=== PATIENT | male | born 1955 | race Caucasian/White ===

== ENCOUNTER 2023-11-21 19:32 | Emergency (ER) | payer MEDICARE, OTHER, SELFPAY ==
[2023-11-21 19:39] VITALS: BP 146/101; PULSE 76; TEMP 36.9; O2SAT 99; BMI 18.5
--- NOTE | 2023-11-21 20:47 | XR_ITS ---
The [address] [address] Patient Name: MARSHA HYDE MRN: [id number] date: 1955 Sex: M Assigned Patient Location: ER Current Patient Location: ER Accession/Order Number: [id number] Exam Date: 11/21/2023 21:45 Report Date: 11/21/2023 22:37 At the request of: TOMASZ MARKER Procedure: XR chest 2V CXR HISTORY: Shortness of breath. COMPARISON: None. TECHNIQUE: 2 views submitted for review. FINDINGS: The lungs are adequately expanded.. Platelike atelectasis There is prominence of interstitial and bronchial markings. The cardiac silhouette measures within normal. Pulmonary vascularity is prominent. Osseous structures demonstrate incompletely imaged right humeral arthroplasty XR/XR chest 2V IMPRESSION: There is prominence of interstitial and bronchial markings. Please correlate for viral etiologies vs pulmonary edema. Electronically authenticated by: KERRY PUTNAM Date: 11/21/2023 22:37
--- NOTE | 2023-11-21 20:47 | XR_ITS ---
[address] [address] Patient Name: MARSHA HYDE MRN: [id number] date: 1955 Sex: M Assigned Patient Location: ER Current Patient Location: Accession/Order Number: [id number] Exam Date: 11/21/2023 21:45 Report Date: 11/21/2023 22:29 At the request of: TOMASZ MARKER Procedure: XR soft tissue neck XR soft tissue neck, 11/21/2023 8:45 PM CDT: History: diff swallowing. Difficulty swallowing. Comparison: None. Technique: 2 view soft tissue neck Findings/Impression: The soft tissues of the neck demonstrate no acute abnormality. There is severe degenerative disc disease of the cervical spine. The airway is midline and patent. Electronically authenticated by: KATHRYN PAREDES Date: 11/21/2023 22:29
--- NOTE | 2023-11-21 23:22 | ED.GENADUL1 ---
HPI HPI - General Adult General Chief complaint: Shortness of Breath/Dyspnea Stated complaint: ALS PT-POSS THROAT CLOSING PER DOC Time Seen by Provider: 11/21/23 19:50 Source: patient Mode of arrival: walk-in History of Present Illness HPI narrative: This 68-year-old male who was diagnosed with ALS 2 years ago and is being followed at [facility] presents for evaluation at the request of his physician. The patient has been having episodes of choking when he drinks water and has been having trouble swallowing his saliva and secretions. He is not having any difficulty breathing. He is not having any difficulty speaking. The physician stated to the patient's that since he was unable to evaluate the patient personally he would like to have him seen in the emergency department for an airway evaluation. The patient is speaking in complete sentences. His voice is a little bit weak but clear. He is managing his secretions without difficulty. He states that when he drinks water he sometimes has difficulty swallowing it and chokes on it but when he eats soft food he tolerates it better. He is scheduled to see interventional radiology and get a feeding tube placed in the next several days. Related Data Allergies Allergy/AdvReac Type Severity Reaction Status Date / Time No Known Drug Allergies Allergy Verified 11/21/23 19:51 Opioid HPI Opioid Management Most Recent Opioid Data: No Data to Display Review of Systems ROS Status of ROS 10 or more systems reviewed and unremarkable except as noted in history and below [facility] Medical History (Updated 11/21/23 @ 22:03 by Tomasz Casillas MD) ALS (amyotrophic lateral sclerosis) ?G12.21 - Amyotrophic lateral sclerosis (ICD-10) Exam Narrative Exam Narrative: Vital signs and Nursing Notes reviewed: Blood pressure is elevated at 146/101 General: Awake, alert, oriented, no acute distress, lying comfortably on the stretcher HEENT: Normocephalic atraumatic, mucous membranes are moist and pink, eyes are clear, normal conjunctiva, vision is grossly intact, posterior pharynx is normal in appearance. There is no swelling of the tongue, uvular pharyngeal soft tissues. There is no pooling of secretions. There is no trismus or drooling. Neck: Supple, no meningeal signs, no anterior or posterior cervical lymphadenopathy Chest: Lungs are clear to auscultation with good air entry, there is no wheezing rhonchi or rales appreciated no accessory muscle use, patient is speaking in complete sentences-no chest wall tenderness to palpation CVS: Regular rate and rhythm S1-S2, no murmurs rubs or gallops, pulses are brisk and equal bilaterally ABD: Soft, nondistended, nontender, no rebound guarding or rigidity, bowel sounds are normal, no pulsatile masses appreciated Extremities: Moving all extremities, diffuse muscle wasting noted Skin: Normal in appearance without rash,pallor, petechiae or purpura Neuro: No focal deficits, speech is clear, generally weak but tolerating secretions, speaking in complete sentences without any respiratory distress, choking or other notable abnormality Constitutional Vital Signs, click to edit/add: Last Vital Signs Temp 98.4 F 11/21/23 19:39 Pulse 76 11/21/23 19:39 Resp 18 11/21/23 19:39 BP 146/101 H 11/21/23 19:39 Pulse Ox 99 11/21/23 19:39 O2 Del Method Room Air 11/21/23 19:39 Course Vital Signs Vital signs: Vital Signs Temperature 98.4 F 11/21/23 19:39 Pulse Rate 76 11/21/23 19:39 Respiratory Rate 18 11/21/23 19:39 Blood Pressure 146/101 H 11/21/23 19:39 Pulse Oximetry 99 11/21/23 19:39 Oxygen Delivery Method Room Air 11/21/23 19:39 Temperature 98.4 F 11/21/23 19:39 Pulse Rate 76 11/21/23 19:39 Respiratory Rate 18 11/21/23 19:39 Blood Pressure 146/101 H 11/21/23 19:39 Pulse Oximetry 99 11/21/23 19:39 Oxygen Delivery Method Room Air 11/21/23 19:39 Medical Decision Making MDM Narrative Medical decision making narrative: This 68-year-old male with a history of ALS who is scheduled to have a feeding tube placed in the near future was referred to the emergency department by his neurologist at [facility] for evaluation of his airway. The patient has been having some difficulty tolerating his secretions and when he drinks liquids he tends to choke. He does tolerate a soft diet better and does not choke when he is swallowing food such as mashed potatoes and creamed tuna. The patient's states that his disease has been advancing fairly quickly over the course of the past several months causing them to have increasing anxiety. There appears to be some concern from the neurologist that he was having airway compromise. Physically his airway is intact. He is tolerating his secretions without difficulty. His lungs are clear. Soft tissue x-ray of the neck was ordered and does not show any acute findings and chest x-ray was ordered and does not show any acute findings or aspiration pneumonia. Prior to the results of the x-rays the patient and his requested to be discharged. I explained to them what the x-rays look like in my interpretation was and they were satisfied with that. They were given copies of the x-rays on a disc to share with their neurologist at [facility]. I encouraged him to continue to have a mechanical soft diet as this is likely easier for him to tolerate then solid food or pure liquids. Medical Records Medical records narrative: [place] [address] XRay Report Signed Patient: MARSHA HYDE MR#: [id number] : 1955 Acct:[id number] Age/Sex: 68 / M ADM Date: 11/21/23 Loc: ER Attending Dr: Ordering Physician: Tomasz Casillas Date of Service: 11/21/23 Procedure(s): XR soft tissue neck Accession Number(s): [id number] cc: KEVIN PIERSON ; Tomasz Casillas~ The [place] [address] Patient Name: MARSHA HYDE MRN: [id number] date: 1955 Sex: M Assigned Patient Location: ER Current Patient Location: Accession/Order Number: [id number] Exam Date: 11/21/2023 21:45 Report Date: 11/21/2023 22:29 At the request of: TOMASZ MARKER Procedure: XR soft tissue neck XR soft tissue neck, 11/21/2023 8:45 PM CDT: History: diff swallowing. Difficulty swallowing. Comparison: None. Technique: 2 view soft tissue neck Findings/Impression: The soft tissues of the neck demonstrate no acute abnormality. There is severe degenerative disc disease of the cervical spine. The airway is midline [place] [address] XRay Report Signed Patient: MARSHA HYDE MR#: [id number] : 1955 Acct:[id number] Age/Sex: 68 / M ADM Date: 11/21/23 Loc: ER Attending Dr: Ordering Physician: Tmoasz Casillas Date of Service: 11/21/23 Procedure(s): XR chest 2V Accession Number(s): [id number] cc: KEVIN PIERSON ; Tomasz Casillas~ The [place] [id number] Patient Name: MARSHA HYDE MRN: [id number] date: 1955 Sex: M Assigned Patient Location: ER Current Patient Location: ER Accession/Order Number: [id number] Exam Date: 11/21/2023 21:45 Report Date: 11/21/2023 22:37 At the request of: TOMASZ CASILLAS Procedure: XR chest 2V CXR HISTORY: Shortness of breath. COMPARISON: None. TECHNIQUE: 2 views submitted for review. FINDINGS: The lungs are adequately expanded.. Platelike atelectasis There is prominence of interstitial and bronchial markings. The cardiac silhouette measures within normal. Pulmonary vascularity is prominent. Osseous structures demonstrate incompletely imaged right humeral arthroplasty XR/XR chest 2V IMPRESSION: There is prominence of interstitial and bronchial markings. Please correlate for viral etiologies vs pulmonary edema. Discharge Plan Discharge Stand Alone Forms: Portal Instructions Chief Complaint: Shortness of Breath/Dyspnea Clinical Impression: Dysphagia Patient Disposition: Home, Self-Care Time of Disposition Decision: 22:03 Condition: Fair Print Language: Surinamese Instructions: Soft Diet (ED), Dysphagia (ED) Referrals: KEVIN PIERSON [Primary Care Provider] - 1 week Discharge Date/Time: 11/21/23 22:19
== END 2023-11-21 22:19 | disposition home or self-care (01) ==
PROVIDERS: Emergency Provider Emergency Medicine; PCP Family Medicine
DX: R13.10 Dysphagia, unspecified (principal); G12.21 Amyotrophic lateral sclerosis
CPT/HCPCS: 70360; 71046; 99284